=== PATIENT | male | born 1985 ===

== ENCOUNTER 2018-09-23 12:47 | Emergency (ER) | payer OTHER ==
[2018-09-23 13:08] VITALS: O2SAT 98
[2018-09-23] MEDS ORDERED: Sodium Chloride 0.9% 1,000 ML IV STA (15:11)
--- NOTE | 2018-09-23 15:11 | ED PDOC ---
HPI: Psych/Substance Abuse Time Seen by Provider: 09/23/18 13:21 Chief Complaint (Nursing): Psychiatric Evaluation Chief Complaint (Provider): hearing voices, MANSFIELD, amnesia Additional Complaint(s): 33 y/o M with hx of depression, schizophrenia, and renal failure for unclear reason in the past who presents for evaluation of schizophrenia symptoms as well as MANSFIELD, amnesia/forgetfulness. Patient states that he recently moved from [place] and has not established medical care here yet. Last week, he was driving and suddenly could not remember where he was or where he was going or who he was. He went through his phone and noted that he had a partner who he called and so was able to get home. He has had frequent episodes of forgetfulness and today was lost for 1hr as he was going from [facility] to ED b/c he could not remember where to go. He has been hearing muffled voices more often that call his name or whisper, but do not tell him to do anything. He has been seeing shadows and feels them when he reaches out to them. His cat has been speaking to him. He realizes that this is all abnormal and is concerned that his psych meds are not working. Denies SI/HI currently but has a MANSFIELD and has been having frequent MANSFIELD and blurry vision. Hx of multiple surgeries on ears with decreased hearing (chronic). Of note: Pt has been transitioning to become female for the past 2 years and is on hormones. Past Medical History Reviewed: Historical Data, Nursing Documentation, Vital Signs Vital Signs: Last Vital Signs Temp 98.6 F 09/23/18 13:06 Pulse 69 09/23/18 13:06 Resp 16 09/23/18 13:06 BP 137/70 09/23/18 13:06 Pulse Ox 98 09/23/18 13:06 - Medical History PMH: Depression, Schizophrenia - Home Medications Home Medications: Ambulatory Orders Medication Instructions Recorded Acetaminophen/Butalbital/Caf 1 tab PO Q6H PRN 7 Days tab 09/23/18 [Fioricet] Ibuprofen [Motrin Tab] 800 mg PO Q6 PRN 7 Days tab 09/23/18 - Allergies Allergies/Adverse Reactions: Allergies Allergy/AdvReac Type Severity Reaction Status Date / Time No Known Allergies Allergy Verified 09/23/18 13:04 Physical Exam - Reviewed Nursing Documentation Reviewed: Yes Vital Signs Reviewed: Yes - Physical Exam Appears: Positive for: Uncomfortable Head Exam: Positive for: ATRAUMATIC Skin: Positive for: Normal Color Eye Exam: Positive for: EOMI, PERRL. Negative for: Periorbital swelling, Conjunctival injection ENT: Positive for: TM Is/Are (left with effusion, no erythema, Right normal. ). 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 Negative for: Aphasia, Facial Droop - Laboratory Results Result Diagrams: 09/23/18 15:49 09/23/18 15:49 - ECG O2 Sat by Pulse Oximetry: 98 Medical Decision Making Medical Decision Making: CBC, CMP, U/A, Urine culture Head CT w/o contrast Crisis evaluation Toradol 30mg IV NS 1L IV X 1 Reglan 10mg IV x [address]: FINDINGS: HEMORRHAGE: No intracranial hemorrhage. BRAIN: No mass effect or edema. No atrophy or chronic microvascular ischemic changes. VENTRICLES: Unremarkable. No hydrocephalus. CALVARIUM: Unremarkable. PARANASAL SINUSES: Unremarkable as visualized. No significant inflammatory changes. MASTOID AIR CELLS: Unremarkable as visualized. No inflammatory changes. OTHER FINDINGS: None. IMPRESSION: No acute intracranial abnormalities. No significant findings to account for the clinical presentation. 19:30: re-evaluated, MANSFIELD is still there Disposition - Clinical Impression Clinical Impression: Schizophrenia, Depression, Migraine - Patient ED Disposition Is Patient to be Admitted: No Discussed With : Jose Carlos Campbell Counseled Patient/Family Regarding: Studies Performed, Diagnosis, Need For Followup, Rx Given - Disposition Referrals: Thierry Escobedo MD [Medical Doctor] - Disposition: Routine/Home Disposition Time: 20:35 Condition: STABLE Additional Instructions: f/u with neurologist for further evaluation of headaches. F/u with resources provided to you by our case workers for your schizophrenia. Take Fioricet and Ibuprofen for MANSFIELD. Return to ER if your MANSFIELD becomes much worse or you are have weakness on one side of your body/trouble with speech. Prescriptions: Acetaminophen/Butalbital/Caf [Fioricet] 1 tab PO Q6H PRN 7 Days tab PRN Reason: Pain, Moderate (4-7) Ibuprofen [Motrin Tab] 800 mg PO Q6 PRN 7 Days tab PRN Reason: Pain, Moderate (4-7) Instructions: Migraine Headache (DC), Schizophrenia (DC) Forms: [employer] (Arabic) Print Language: ARMENIAN
[2018-09-23 15:37] VITALS: BP 123/77; PULSE 70; RESP 18; TEMP 98.3
--- NOTE | 2018-09-23 15:47 | CT ---
Date of service: 09/23/2018 PROCEDURE: CT HEAD WITHOUT CONTRAST. HISTORY: amnestic episodes, forgetfulness COMPARISON: None available. TECHNIQUE: Axial computed tomography images were obtained through the head/brain without intravenous contrast. Supplemental Coronal and Sagittal projections created and reviewed. Radiation dose: Total exam DLP = 823.19 mGy-cm. This CT exam was performed using one or more of the following dose reduction techniques: Automated exposure control, adjustment of the mA and/or kV according to patient size, and/or use of iterative reconstruction technique. FINDINGS: HEMORRHAGE: No intracranial hemorrhage. BRAIN: No mass effect or edema. No atrophy or chronic microvascular ischemic changes. VENTRICLES: Unremarkable. No hydrocephalus. CALVARIUM: Unremarkable. PARANASAL SINUSES: Unremarkable as visualized. No significant inflammatory changes. MASTOID AIR CELLS: Unremarkable as visualized. No inflammatory changes. OTHER FINDINGS: None. IMPRESSION: No acute intracranial abnormalities. No significant findings to account for the clinical presentation.
[2018-09-23 16:00] LABS: BASO % 0.5 % (0.0-2.0); EOS # 0.4 K/uL (0.0-0.7); EOS % 3.7 % (0.0-4.0); HEMOGLOBIN 13.7 g/dL (12.0-18.0); LYMPH # 3.1 K/uL (1.0-4.3); LYMPH % 32.8 % (20.0-40.0); MEAN CORPUSCULAR HEMOGLOBIN 27.8 pg (27.0-31.0); MEAN CORPUSCULAR HGB CONC 33.5 g/dL (33.0-37.0); MEAN PLATELET VOLUME 7.3 fl (7.2-11.7); MONO # 0.5 K/uL (0.0-0.8); NEUT # 5.4 K/uL (1.8-7.0); NRBC % 0.1 % (0.0-0.0); RBC 4.93 Mil/uL (4.40-5.90); WHITE BLOOD COUNT 9.3 K/uL (4.8-10.8)
[2018-09-23 16:21] LABS: ALB/GLOB RATIO 1.4 (1.0-2.1); ALBUMIN 4.3 g/dL (3.5-5.0); ALT/SGPT 25 U/L (21-72); AST/SGOT 24 U/L (17-59); BLOOD UREA NITROGEN 17 mg/dl (9-20); CALCIUM 9.4 mg/dL (8.4-10.2); GFR NON-AFRICAN AMERICAN > 60
[2018-09-23 17:04] LABS: SQUAMOUS EPITHIAL 1 /hpf (0-5); URINE BACTERIA RARE (<OCC); URINE BILIRUBIN NEGATIVE (NEGATIVE); URINE BLOOD NEGATIVE (NEGATIVE); URINE CLARITY CLOUDY (Clear); URINE COLOR YELLOW (YELLOW); URINE GLUCOSE (UA) NEG (NEGATIVE); URINE LEUKOCYTE ESTERASE NEG Leu/uL (Negative); URINE PROTEIN NEGATIVE (NEGATIVE); URINE UROBILINOGEN 0.2-1.0 mg/dL (0.2-1.0)
== END 2018-09-23 20:56 | disposition home or self-care (01) ==
LOC: H.ER 12:47
DX: G43.909 Migraine, unspecified, not intractable, without status migrainosus (principal); F20.9 Schizophrenia, unspecified; F32.9 Major depressive disorder, single episode, unspecified; H91.90 Unspecified hearing loss, unspecified ear
CPT/HCPCS: 70450; 80053; 81003; 85025; 87086; 96361; 96374; 96375; 99284; J1885; J2765; J7030

== ENCOUNTER 2018-11-26 06:37 | Emergency (ER) | payer OTHER ==
--- NOTE | 2018-11-26 07:19 | ED PDOC ---
HPI: Male Pain Time Seen by Provider: 11/26/18 07:09 Chief Complaint (Nursing): Male Genitourinary Chief Complaint (Provider): male genitourinary History Per: Patient History/Exam Limitations: no limitations Onset/Duration Of Symptoms: Hrs (22:00) Current Symptoms Are (Timing): Still Present Additional Complaint(s): Arjun Dolan is a 33 year old male, with a past medical history of schizophrenia, who presents to the emergency department for evaluation of a persistent erection since 22:00 last night. Patient reports similar symptoms x6 months ago during which they had to drain blood. He denies using any drugs or other medical complaints. PMD: None provided. Past Medical History Reviewed: Historical Data, Nursing Documentation, Vital Signs Vital Signs: Last Vital Signs Temp 97.8 F 11/26/18 06:48 Pulse 73 11/26/18 06:48 Resp 16 11/26/18 06:48 BP 128/72 11/26/18 06:48 Pulse Ox 98 11/26/18 06:48 - Medical History PMH: Depression, Schizophrenia - Surgical History Surgical History: No Surg Hx - Family History Family History: States: Unknown Family Hx - Social History Current smoker - smoking cessation education provided: Yes Alcohol: None Drugs: Denies - Home Medications Home Medications: Ambulatory Orders Medication Instructions Recorded No Known Home Med 11/26/18 - Allergies Allergies/Adverse Reactions: Allergies Allergy/AdvReac Type Severity Reaction Status Date / Time No Known Allergies Allergy Verified 09/23/18 13:04 Review of Systems ROS Statement: Except As Marked, All Systems Reviewed And Found Negative Constitutional: Negative for: Fever, Chills Genitourinary Male: Positive for: Other (persistent erection) Physical Exam - Reviewed Nursing Documentation Reviewed: Yes Vital Signs Reviewed: Yes - Physical Exam Appears: Positive for: Uncomfortable Head Exam: Positive for: ATRAUMATIC, NORMAL INSPECTION, NORMOCEPHALIC Skin: Positive for: Normal Color, Warm, Dry Eye Exam: Positive for: Normal appearance, EOMI, PERRL Neck: Positive for: Normal, Painless ROM Cardiovascular/Chest: Positive for: Regular Rate, Rhythm. Negative for: Murmur Respiratory: Positive for: Normal Breath Sounds. Negative for: Respiratory Distress Gastrointestinal/Abdominal: Positive for: Normal Exam, Soft. Negative for: Tenderness Male Genital Exam: Positive for: other (erectile penis ) Back: Positive for: Normal Inspection. Negative for: L CVA Tenderness, R CVA Tenderness Extremity: Positive for: Normal ROM (upper and lower extremities). Negative f or: Deformity, Swelling Neurological/Psych: Positive for: Awake, Alert, Normal Tone, Oriented - ECG O2 Sat by Pulse Oximetry: 98 (RA) Pulse Ox Interpretation: Normal - Critical Care Total Time (In Min): 30 Medical Decision Making Medical Decision Making: Time: 07:09 Initial impression: Initial Plan: --Brethine Inj 0.25mg SC --Reevaluation 07:[address] Welch. Recommends Terbutaline, will come to ED to evaluate, requesting Phenylephrine at bedside. 09:30 Pt feels better, priapism resolved with Terbutaline. Scribe Attestation: Documented by Crow Whittaker, acting as a scribe Vipin Calderon MD Provider Scribe Attestation: All medical record entries made by the Scribe were at my direction and personally dictated by me. I have reviewed the chart and agree that the record accurately reflects my personal performance of the history, physical exam, medical decision making, and the department course for this patient. I have also personally directed, reviewed, and agree with the discharge instructions and disposition. Disposition - Clinical Impression Clinical Impression: Priapism - Disposition Referrals: Bryan Welch MD [Staff Provider] - Disposition: Routine/Home Disposition Time: 09:57 Condition: IMPROVED Instructions: Priapism Forms: [address] (Arabic) Print Language: PORTUGUESE
[2018-11-26 10:17] VITALS: BP 122/76; PULSE 76; RESP 18; TEMP 98
[2018-11-29 14:08] VITALS: O2SAT 98
== END 2018-11-26 10:15 | disposition home or self-care (01) ==
LOC: H.ER 06:37
DX: N48.30 Priapism, unspecified (principal)
CPT/HCPCS: 96372; 99284; J3105